=== PATIENT | female | born 1985 | race Caucasian/White ===

== ENCOUNTER 2022-08-31 09:11 | Emergency (ER) | payer BC, SELFPAY ==
[2022-08-31 09:37] VITALS: BP 124/68; PULSE 80; RESP 18; TEMP 36.3; O2SAT 100
--- NOTE | 2022-08-31 10:00 | ED.GENADULT ---
HPI - General Adult General Chief complaint: Eye Problems Stated complaint: lt eye irritation Time Seen by Provider: 08/31/22 10:00 Source: patient Mode of arrival: ambulatory Limitations: no limitations History of Present Illness HPI narrative: 36-year-old female patient presents to the [facility] with complaints of left eye irritation that started last night. Patient states the eye has been itchy and watery. Patient denies any vision changes. Patient states that when she woke up this morning it was matted shut she cleaned it really well with some hot water. Patient continues to complain of redness and itchiness her left eye. Related Data Allergies Allergy/AdvReac Type Severity Reaction Status Date / Time amoxicillin Allergy Unknown Gastrointestinal Verified 08/31/22 09:57 Upset clavulanic acid Allergy Unknown Gastrointestinal Verified 08/31/22 09:57 Upset Review of Systems Review of Systems: CONSTITUTIONAL: Denies fever, chills, or sweats. EYES: Denies visual changes, Positive left eye redness, and clear discharge. ENT: Denies rhinorrhea, congestion, sore throat, or otalgia. CARDIOVASCULAR: Denies chest pain, palpitations, or edema. RESPIRATORY: Denies cough or dyspnea. GASTROINTESTINAL: Denies abdominal pain, nausea, vomiting, or diarrhea. GENITOURINARY: Denies dysuria or hematuria. SKIN: Denies rash or itching. MUSCULOSKELETAL: Denies back pain, joint pain, or myalgia. NEUROLOGIC: Denies headache, numbness, or weakness. PSYCHIATRIC: Denies anxiety or depression. [facility] Past Medical History Medical History (Updated 08/31/22 @ 10:07 by ISIDRO Jasso) Fracture left arm, left wrist, left 5th toe Comments At the time of my signature I agree with nursing past medical history, surgical, social, and family history. There is no relevant family history pertinent to the presenting complaint. Exam Narrative: GENERAL: Well-appearing, well-nourished, and in no acute distress. HEAD: Normocephalic, atraumatic. EYES: PERRLA and EOMI. erythema and injection the sclera noted to the left eye no obvious colored drainage noted at this time. No lid swelling noted. ENT: Nares clear, no rhinorrhea or epistaxis. Mucous membranes moist. NECK: Supple. No lymphadenopathy CHEST: Clear to auscultation. No respiratory distress. HEART: Regular rate and rhythm. No murmur heard. Normal peripheral pulses. ABDOMEN: Soft, nontender, nondistended, normal active bowel sounds. EXTREMITIES: Normal range of motion. No edema. SKIN: Warm, dry, no rash. NEURO: No focal deficits. Alert and oriented x3. Course Course Level of Care: Express Care Visit Vital Signs Vital signs: Vital Signs Temperature 36.3 C L 08/31/22 09:37 Pulse Rate 80 08/31/22 09:37 Respiratory Rate 18 08/31/22 09:37 Blood Pressure 124/68 08/31/22 09:37 Pulse Oximetry 100 08/31/22 09:37 Oxygen Delivery Room Air 08/31/22 09:37 Temperature 36.3 C L 08/31/22 09:37 Pulse Rate 80 08/31/22 09:37 Respiratory Rate 18 08/31/22 09:37 Blood Pressure 124/68 08/31/22 09:37 Pulse Oximetry 100 08/31/22 09:37 Oxygen Delivery Room Air 08/31/22 09:37 vital signs reviewed. Medical Decision Making MDM Narrative Medical decision making narrative: Plan care for patient's discharge her home with an antihistamine eyedrop that will help with the redness and itchiness. Encouraged patient to continue taking oral antihistamines and warm compresses to the eye and clean the lids with baby shampoo. If symptoms worsen she would need to return or see her primary doctor for possible antibiotics. Differential Diagnosis Differential Diagnosis: Differential diagnosis: Conjunctivitis, foreign body, corneal ulcer, Keratitis, dendritic lesions, corneal abrasion, very orbital infection, orbital cellulitis, orbital pain, acute narrow angle glaucoma, detached retina, central retinal artery occlusion, complete hyphema, vitreous hemorrhage, optic ne
== END 2022-08-31 10:14 | disposition home or self-care (01) ==
PROVIDERS: Emergency Provider Nurse Practitioner Family
DX: H10.32 Unspecified acute conjunctivitis, left eye (principal)
CPT/HCPCS: 99213; G0463

== ENCOUNTER 2023-10-17 18:26 | Emergency (ER) | payer BC, SELFPAY ==
[2023-10-17 18:37] VITALS: BP 133/60; PULSE 81; RESP 16; TEMP 37.1; O2SAT 99
--- NOTE | 2023-10-17 18:47 | ED.URI ---
HPI - URI/Sore Throat General Chief Complaint: Upper Respiratory Infection Stated Complaint: sore throat,strep throat exposure History of Present Illness HPI Narrative: 38-year-old female presented for complaint of sore throat and headache onset yesterday. Endorses daughter completed treatment for strep throat this week. Denies n/v/d/f/c. Related Data Allergies Allergy/AdvReac Type Severity Reaction Status Date / Time amoxicillin Allergy Unknown Gastrointestinal Verified 10/17/23 18:28 Upset clavulanic acid Allergy Unknown Gastrointestinal Verified 10/17/23 18:28 Upset Review of Systems Review of Systems: CONSTITUTIONAL: Denies body aches, fever, chills, or sweats. EYES: Denies visual changes, redness, or discharge. ENT: reports sore throat Denies rhinorrhea, congestion, or otalgia. CARDIOVASCULAR: Denies chest pain, palpitations, or edema. RESPIRATORY: Denies dyspnea. GASTROINTESTINAL: Denies abdominal pain, nausea, vomiting, or diarrhea. SKIN: Denies rash, itching, or wounds. MUSCULOSKELETAL: Denies back pain, joint pain, or myalgia. NEUROLOGIC: Denies headache PMFSH Past Medical History Medical History Fracture left arm, left wrist, left 5th toe Exam Narrative: GENERAL: well-appearing, no acute distress. EYES: conjunctivae clear ENT: Mucous membranes moist. TMs pearly resendiz with normal light reflex bilaterally; no tragal tenderness. Oropharynx erythematous tonsils enlarged 2+ with exudate. No drooling, no hoarseness, no trismus, uvula midline. No tripod positioning, hot potato voice, or soft palate swelling. NECK: Supple. No lymphadenopathy CHEST: Clear to auscultation, breath sounds equal. No respiratory distress, speaks in full sentences. HEART: Regular rate and rhythm. No murmur heard. SKIN: Warm, dry, no rash. NEURO: Alert and oriented x3. Course Course Emergency Course: Patient is aware of diagnosis, understands and agrees to treatment plan. Anticipatory guidance given. Patient agrees to follow-up as directed and is aware of reasons to seek care at the emergency department. Portions of this record may have been created with voice recognition software Level of Care: Express Care Visit Vital Signs Vital signs: Vital Signs Temperature 98.7 F 10/17/23 18:37 Pulse Rate 81 10/17/23 18:37 Respiratory Rate 16 10/17/23 18:37 Blood Pressure 133/60 10/17/23 18:37 Pulse Oximetry 99 10/17/23 18:37 Oxygen Delivery Room Air 10/17/23 18:37 Temperature 98.7 F 10/17/23 18:37 Pulse Rate 81 10/17/23 18:37 Respiratory Rate 16 10/17/23 18:37 Blood Pressure 133/60 10/17/23 18:37 Pulse Oximetry 99 10/17/23 18:37 Oxygen Delivery Room Air 10/17/23 18:37 MDM - URI/Sore Throat MDM Narrative Medical decision making narrative: POS strep result reviewed with pt. Pt denies amox allergy, states she has also had Augmentin in the past without issue. Advise supportive treatments. Patient is appropriate for outpatient treatment and follow-up. Differential Diagnosis Differential diagnosis: Likely upper respiratory infection, otitis media, sinusitis, viral infection, influenza and pharyngitis Discharge Plan Discharge Clinical Impression: Strep pharyngitis Patient Disposition: Home, Self-Care Condition: Stable Instructions: Antibiotic Form, Strep Throat (ED) Additional Instructions: - Take the antibiotic as directed. Fever and sore throat typically resolve within one to three days. Most patients can return to work, after 12 to 24 hours of antibiotic therapy, provided you are fever free and otherwise well. -Eat and drink things that are easy to swallow, like soft foods, cool liquids, tea with honey, or popsicles . -Salt water gargles and/or may use topical anesthetic ( Chloraseptic spray) or lozenges to relieve dryness or throat pain -Alternate Tylenol and ibuprofen as needed for pain a
== END 2023-10-17 18:55 | disposition home or self-care (01) ==
PROVIDERS: Emergency Provider Nurse Practitioner Family
DX: J02.0 Streptococcal pharyngitis (principal)
CPT/HCPCS: 87880; 99213; G0463